=== PATIENT | female | born 1980 | race Hispanic/Latino ===

== ENCOUNTER 2019-02-22 08:31 | Outpatient (CLI) | payer OTHER ==
[2019-02-22 09:14] LABS: BHCG - Serum Negative (NEGATIVE); Pregs Control Background? CLEAR/WHITE (CLR/WHITE); Pregs Control Bar Appear? YES (CONTROL BAR)
[2019-02-22 09:15] LABS: Follow-up Chemistry Comp? YES
--- NOTE | 2019-02-22 12:00 | RAD ---
Hysterosalpingogram HISTORY: Evaluate tubal patency. Prior tubal ligation with reversal. FINDINGS: After explaining the procedure and answering all questions, the uterine cervix was exposed and prepped with Betadine. HSG catheter was carefully placed and the balloon inflated. Gentle administration of water-soluble contrast showed normal capacity and contour of the endometrial cavity . Small air bubble was temporarily seen at the left side of the fundus. After a short time of consistent gentle pressure, there was opacification of approximately 4 cm nondilated left fallopian t ube. The fimbria was never reliably opacified. No free spill seen. Persistent gentle pressure was applied with the contrast column. Approximately 3 cm of the right fallopian tube, nondilated, was robert ntually opacified. The fimbria never well seen. No free spill visualized. Continued gentle pressure was applied in an attempt to push the contrast through the remainder of the fallopian tubes. The uterine cervix was somewhat patulous, as the retention balloon was pushed through the somewhat elongated cervical canal, so that the contrast was then decompressed into the va rebecca. Metallic clip was seen within the left posterior pelvis, favored to be within the left side of the cu l-de-sac. Patient tolerated the procedure well and was dismissed in good condition. Fluoroscopy time 1.0 minute. IMPRESSION: Incomplete patency of the fallopian tubes. The length of each opacified fallopian tube ap pears greater than would be expected after a tubal ligation, although free spill was unable to be obtained, even after persistent gentle increasing fluid pressure.
== END 2019-02-22 08:32 | disposition home or self-care (01) ==
LOC: RAD 08:31
PROVIDERS: ATTEND Obstetrics & Gynecology
DX: N97.1 Female infertility of tubal origin (principal)
CPT/HCPCS: 36415; 58340; 74740; 84703

== ENCOUNTER 2020-05-07 09:42 | Outpatient (CLI) | payer OTHER ==
[2020-05-07 10:03] LABS: BHCG - Serum Negative (NEGATIVE); Pregs Control Background? CLEAR/WHITE (CLR/WHITE); Pregs Control Bar Appear? YES (CONTROL BAR)
--- NOTE | 2020-05-07 12:13 | RAD ---
Exam: Hysterosalpingogram HISTORY: Evaluate tubal patency. Reversal of tubal ligation. 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 Contrast does opacify the endometrium. There is parti al opacification of the left and right fallopian tubes. There is no evidence of free spillage in the left and right hemipelvis. There is reflux of contrast and uptake via the venous system. The veno us system with linear opacification the left hemipelvis. Balloon was deflated. Lower uterine segment is grossly unremarkable. IMPRESSION: No evidence of left or right tubal patency.
== END 2020-05-07 09:43 | disposition home or self-care (01) ==
LOC: RAD 09:42
PROVIDERS: ATTEND Obstetrics & Gynecology
DX: Z32.00 Encounter for pregnancy test, result unknown (principal); N97.9 Female infertility, unspecified
CPT/HCPCS: 36415; 58340; 74740; 84703

== ENCOUNTER 2021-03-27 09:35 | Outpatient (CLI) | payer OTHER ==
[2021-03-27 10:19] LABS: BHCG - Serum Negative (NEGATIVE); Pregs Control Background? CLEAR/WHITE (CLR/WHITE); Pregs Control Bar Appear? YES (CONTROL BAR)
== END 2021-03-27 09:36 | disposition home or self-care (01) ==
LOC: RAD 09:35
PROVIDERS: ATTEND Advanced Practice Midwife
DX: N97.1 Female infertility of tubal origin (principal); Z87.59 Personal history of other complications of pregnancy, childbirth and the puerperium
CPT/HCPCS: 58340; 74740; 84703

== ENCOUNTER 2021-12-16 07:30 | Outpatient (CLI) | payer OTHER ==
[2021-12-16 08:30] LABS: BHCG - Serum Negative (NEGATIVE); Pregs Control Background? CLEAR/WHITE (CLR/WHITE); Pregs Control Bar Appear? YES (CONTROL BAR)
== END 2021-12-16 07:31 | disposition home or self-care (01) ==
LOC: RAD 07:30
PROVIDERS: ATTEND Nurse Practitioner Family
DX: Z32.00 Encounter for pregnancy test, result unknown (principal)
CPT/HCPCS: 36415; 84703

== ENCOUNTER 2022-01-10 13:32 | Outpatient (CLI) | payer OTHER ==
[2022-01-10 14:02] LABS: BHCG - Serum Negative (NEGATIVE); Pregs Control Background? CLEAR/WHITE (CLR/WHITE); Pregs Control Bar Appear? YES (CONTROL BAR)
== END 2022-01-10 13:33 | disposition home or self-care (01) ==
LOC: RAD 13:32
PROVIDERS: ATTEND Student in an Organized Health Care Education/Training Program
DX: Z32.00 Encounter for pregnancy test, result unknown (principal); N97.9 Female infertility, unspecified; Z31.69 Encounter for other general counseling and advice on procreation
CPT/HCPCS: 36415; 58340; 74740; 84703

== ENCOUNTER 2022-09-01 08:45 | Emergency (ER) | payer OTHER ==
[2022-09-01 09:56] LABS: #Eosinphils 0.1 thou/uL (0.0-0.7); #Lymphocytes 1.8 thou/uL (1.20-3.40); #Monocytes 0.4 thou/uL (0.11-0.59); #Neutrophils 3.3 thou/uL (1.40-6.50); %Basophils 0.7 % (0.0-1.0); %Eosinophils 2.6 % (0.0-10.0); %Lymphocytes 31.4 % (21.0-51.0); %Neutrophils 58.3 % (42.0-75.0); Mean Corpuscular HGB CONC 32.2 g/dL (32.0-36.0); Mean Corpuscular Hemoglobin 29.5 pg (27.0-31.0); Mean Corpuscular Volume 91.4 fl (78.0-98.0); Mean Platelet Volume 8.4 fL (7.4-10.4); Platelet Count 316 10x3/uL (130-400); RBC Distribution Width 13.8 % (11.5-14.5); Red Blood Cell (RBC) Count 4.08 mill/uL (4.20-5.40); White Blood Cell (WBC) Count 5.6 10x3/uL (4.8-10.8)
[2022-09-01 10:30] LABS: Bacteria/HPF None Seen HPF (None Seen); Bilirubin Negative (Negative); Blood, Urine 3+ (Negative); Clarity Clear (Clear); Glucose, Urine (Dipstick) Normal (Negative); Ketone, Urine Negative (Negative); Leukocyte Negative Leu/uL (Negative); Nitrite Negative (Negative); Protein, Urine (Dipstick) Negative (Neg-Trace); RBC/HPF Greater than 50 HPF (0-3); Specific Gravity, Urine 1.009 (1.002-1.036); Squamous Epithelial 0-3 HPF (0-3); Urobilinogen Normal mg/dL (Less than 2); WBC/HPF 0-3 HPF (0-3); pH, Urine 6.5 (5.0-9.0)
[2022-09-01 10:33] LABS: ALT (SGPT) 12 U/L (8-55); AST (SGOT) 15 U/L (5-34); Albumin 4.2 g/dL (3.5-5.0); Alkaline Phosphatase 78 U/L (40-110); Anion Gap 11 mmol/L (10-20); BUN (Urea Nitrogen) 8 mg/dL (7.0-18.7); Bilirubin, Total 0.3 mg/dL (0.2-1.2); Calc. Creatinine Clearance 0 mL/min (70-130); Calcium 9.3 mg/dL (7.8-10.44); Carbon Dioxide 24 mmol/L (22-29); Chloride 106 mmol/L (98-107); Estimated GFR 113; Globulin 3.2 g/dL (2.4-3.5); Glucose 99 mg/dL (70-105); Potassium 3.9 mmol/L (3.5-5.1); Protein, Total 7.4 g/dL (6.0-8.3); Sodium 137 mmol/L (136-145)
== END 2022-09-01 11:49 | disposition home or self-care (01) ==
LOC: ERS 08:45
DX: O20.0 Threatened abortion (principal); Z3A.00 Weeks of gestation of pregnancy not specified
CPT/HCPCS: 36415; 76856; 80053; 81003; 81015; 84702; 85025; 86900; 86901; 99284

== ENCOUNTER 2022-10-07 15:46 | Emergency (ER) | payer OTHER ==
[2022-10-07] MEDS ORDERED: Dicyclomine 20 MG TAB ONE (16:56)
[2022-10-07] MEDS ORDERED: Ketorolac Tromethamine 30 MG/ML VIAL ONE (16:56)
[2022-10-07] MEDS ORDERED: Dicyclomine 20 MG/2 ML VIAL ONE (16:57)
[2022-10-07] MEDS ORDERED: Ondansetron ODT 4 MG TAB ONE (17:31)
[2022-10-07 17:46] LABS: Bacteria/HPF 4+ HPF (None Seen); Bilirubin Negative (Negative); Blood, Urine 3+ (Negative); Clarity Clear (Clear); Glucose, Urine (Dipstick) Normal (Negative); Ketone, Urine Negative (Negative); Leukocyte 500 Leu/uL (Negative); Nitrite 1+ (Negative); Protein, Urine (Dipstick) 70 mg/dL (Neg-Trace); Specific Gravity, Urine 1.012 (1.002-1.036); Squamous Epithelial 0-3 HPF (0-3); Urobilinogen Normal mg/dL (Less than 2); WBC/HPF 21-50 HPF (0-3)
[2022-10-07 17:52] LABS: Pregnancy Test - Urine (BHCG) Negative (Negative); Pregu Control Background? CLEAR/WHITE (CLR/WHITE); Pregu Control Bar Appear? YES (CONTROL BAR); Specific Gravity 1.012 (1.002-1.036)
== END 2022-10-07 18:40 | disposition home or self-care (01) ==
LOC: ERS 15:46
DX: N39.0 Urinary tract infection, site not specified (principal)
CPT/HCPCS: 74176; 81003; 81015; 81025; 96372; J1885; Q0162

== ENCOUNTER 2022-12-18 08:51 | Emergency (ER) | payer OTHER ==
[2022-12-18 09:17] LABS: Blood, Urine Moderate (Negative); Ketone, Urine Trace mg/dL (Negative); Specific Gravity, Urine 1.015 (1.005-1.030)
[2022-12-18 09:18] LABS: Clarity Hazy (Clear)
[2022-12-18] MEDS ORDERED: Ketorolac Tromethamine 30 MG/ML VIAL ONE (09:18)
[2022-12-18] MEDS ORDERED: Ondansetron PF 4 MG/2 ML Vial ONE (09:18)
[2022-12-18 09:21] LABS: Bilirubin Unable to Interpret (Negative); Glucose, Urine (Dipstick) Unable to Interpret mg/dL (Negative); Leukocyte Unable to Interpret (Negative); Nitrite Unable to Interpret (Negative); Urobilinogen UNABLE TO INTERPRET mg/dL (Less than 2)
[2022-12-18 09:33] LABS: #Eosinphils 0.1 thou/uL (0.0-0.7); #Monocytes 0.6 thou/uL (0.11-0.59); #Neutrophils 6.5 thou/uL (1.40-6.50); %Basophils 0.3 % (0.0-1.0); %Eosinophils 1.5 % (0.0-10.0); %Lymphocytes 18.5 % (21.0-51.0); %Monocytes 6.7 % (0.0-10.0); %Neutrophils 72.7 % (42.0-75.0); Hemoglobin 12.1 g/dL (12.0-16.0); Mean Corpuscular HGB CONC 33.1 g/dL (32.0-36.0); Mean Corpuscular Hemoglobin 29.7 pg (27.0-31.0); Mean Corpuscular Volume 89.7 fl (78.0-98.0); Mean Platelet Volume 10.5 fL (7.4-10.4); Platelet Count 325 10x3/uL (130-400); RBC Distribution Width 14.1 % (11.5-14.5); Red Blood Cell (RBC) Count 4.08 mill/uL (4.20-5.40); White Blood Cell (WBC) Count 8.9 10x3/uL (4.8-10.8)
[2022-12-18 09:44] LABS: CAUTI Indications for Culture Pelvic or flank pain; WBC/HPF Greater than 50 HPF (0-3)
[2022-12-18 09:45] LABS: Bacteria/HPF 3+ HPF (None Seen); Renal Epithelial 0-3 HPF (None Seen); Squamous Epithelial 0-3 HPF (0-3)
[2022-12-18 09:46] LABS: Urine Culture Reflex Yes Yes
[2022-12-18 09:52] LABS: BHCG - Serum Negative (NEGATIVE); Pregs Control Background? CLEAR/WHITE (CLR/WHITE); Pregs Control Bar Appear? YES (CONTROL BAR)
[2022-12-18 10:13] LABS: ALT (SGPT) 13 U/L (8-55); AST (SGOT) 13 U/L (5-34); Albumin 4.2 g/dL (3.5-5.0); Alkaline Phosphatase 73 U/L (40-110); Anion Gap 13 mmol/L (10-20); BUN (Urea Nitrogen) 10 mg/dL (7.0-18.7); Bilirubin, Total 0.5 mg/dL (0.2-1.2); Calc. Creatinine Clearance 0 mL/min (70-130); Calcium 9.6 mg/dL (7.8-10.44); Carbon Dioxide 20 mmol/L (22-29); Chloride 105 mmol/L (98-107); Estimated GFR 108; Globulin 3.3 g/dL (2.4-3.5); Glucose 93 mg/dL (70-105); Lipase 6 U/L (8-78); Protein, Total 7.5 g/dL (6.0-8.3); Sodium 134 mmol/L (136-145)
== END 2022-12-18 10:56 | disposition home or self-care (01) ==
LOC: ERS 08:51
DX: N10 Acute pyelonephritis (principal)
CPT/HCPCS: 36415; 80053; 81001; 83605; 83690; 84703; 85025; 87077; 87086; 87186; 96374; 96375; J1885; J2405

== ENCOUNTER 2023-04-17 20:05 | Emergency (ER) | payer OTHER ==
[2023-04-17 21:07] LABS: #Eosinphils 0.1 thou/uL (0.0-0.7); #Monocytes 1.1 thou/uL (0.11-0.59); #Neutrophils 9.7 thou/uL (1.40-6.50); %Basophils 0.2 % (0.0-1.0); %Eosinophils 0.6 % (0.0-10.0); %Lymphocytes 21.2 % (21.0-51.0); %Monocytes 7.6 % (0.0-10.0); %Neutrophils 69.9 % (42.0-75.0); Hematocrit 36.9 % (36.0-47.0); Hemoglobin 12.1 g/dL (12.0-16.0); Mean Corpuscular HGB CONC 32.8 g/dL (32.0-36.0); Mean Corpuscular Hemoglobin 30.3 pg (27.0-31.0); Mean Corpuscular Volume 92.3 fl (78.0-98.0); Platelet Count 425 10x3/uL (130-400); RBC Distribution Width 15.5 % (11.5-14.5); White Blood Cell (WBC) Count 13.9 10x3/uL (4.8-10.8)
[2023-04-17 21:42] LABS: Bilirubin Negative (Negative); Blood, Urine Negative (Negative); Clarity Clear (Clear); Glucose, Urine (Dipstick) Normal (Negative); Ketone, Urine Negative (Negative); Leukocyte Negative Leu/uL (Negative); Nitrite Negative (Negative); Protein, Urine (Dipstick) Negative (Neg-Trace); Specific Gravity, Urine 1.009 (1.002-1.036); Urobilinogen Normal mg/dL (Less than 2); pH, Urine 5.5 (5.0-9.0)
[2023-04-17 21:52] LABS: Bacteria/HPF Rare-Few HPF (None Seen); CAUTI Indications for Culture Pregnancy; RBC/HPF None Seen HPF (0-3); Squamous Epithelial 0-3 HPF (0-3); WBC/HPF 0-3 HPF (0-3)
[2023-04-17 21:53] LABS: Urine Culture Reflex Yes Yes
== END 2023-04-17 22:18 | disposition home or self-care (01) ==
LOC: ERS 20:05
DX: O20.0 Threatened abortion (principal); Z3A.01 Less than 8 weeks gestation of pregnancy
CPT/HCPCS: 36415; 81001; 84702; 85025; 87086; 99284

== ENCOUNTER 2023-05-04 06:32 | Emergency (ER) | payer OTHER ==
[2023-05-04 07:23] LABS: #Eosinphils 0.1 thou/uL (0.0-0.7); #Monocytes 0.6 thou/uL (0.11-0.59); #Neutrophils 6.6 thou/uL (1.40-6.50); %Basophils 0.2 % (0.0-1.0); %Eosinophils 1.2 % (0.0-10.0); %Lymphocytes 21.3 % (21.0-51.0); %Monocytes 6.2 % (0.0-10.0); %Neutrophils 70.7 % (42.0-75.0); Hematocrit 35.4 % (36.0-47.0); Hemoglobin 11.6 g/dL (12.0-16.0); Mean Corpuscular HGB CONC 32.8 g/dL (32.0-36.0); Mean Corpuscular Volume 94.7 fl (78.0-98.0); Mean Platelet Volume 9.9 fL (7.4-10.4); Platelet Count 338 10x3/uL (130-400); RBC Distribution Width 15.4 % (11.5-14.5); Red Blood Cell (RBC) Count 3.74 mill/uL (4.20-5.40); White Blood Cell (WBC) Count 9.3 10x3/uL (4.8-10.8)
[2023-05-04 07:34] LABS: Bilirubin Negative (Negative); Blood, Urine 3+ (Negative); CAUTI Indications for Culture Pregnancy; Glucose, Urine (Dipstick) Normal (Negative); Ketone, Urine Negative (Negative); Leukocyte 25 Leu/uL (Negative); Nitrite Negative (Negative); Protein, Urine (Dipstick) 30 mg/dL (Neg-Trace); Urobilinogen Normal mg/dL (Less than 2)
[2023-05-04 07:37] LABS: Bacteria/HPF 1+ HPF (None Seen); Clarity Hazy (Clear)
[2023-05-04 07:50] LABS: ALT (SGPT) 14 U/L (8-55); AST (SGOT) 10 U/L (5-34); Albumin 3.5 g/dL (3.5-5.0); Alkaline Phosphatase 70 U/L (40-110); Anion Gap 13 mmol/L (10-20); BUN (Urea Nitrogen) 12 mg/dL (7.0-18.7); Bilirubin, Total 0.4 mg/dL (0.2-1.2); Calc. Creatinine Clearance 0 mL/min (70-130); Calcium 9.2 mg/dL (7.8-10.44); Carbon Dioxide 24 mmol/L (22-29); Chloride 106 mmol/L (98-107); Estimated GFR 113; Globulin 3.2 g/dL (2.4-3.5); Glucose 91 mg/dL (70-105); Potassium 3.7 mmol/L (3.5-5.1); Protein, Total 6.7 g/dL (6.0-8.3); Sodium 139 mmol/L (136-145)
[2023-05-04 07:54] LABS: Urine Culture Reflex Yes Yes
== END 2023-05-04 11:39 | disposition short-term general hospital (02) ==
LOC: ERS 06:32
DX: O20.8 Other hemorrhage in early pregnancy (principal); O23.91 Unspecified genitourinary tract infection in pregnancy, first trimester; R82.71 Bacteriuria; Z3A.01 Less than 8 weeks gestation of pregnancy
CPT/HCPCS: 36415; 76801; 80053; 81001; 84702; 85025; 87086

== ENCOUNTER 2023-06-06 13:22 | Emergency (ER) | payer OTHER ==
[2023-06-06 13:59] LABS: #Monocytes 0.5 thou/uL (0.11-0.59); #Neutrophils 3.1 thou/uL (1.40-6.50); %Basophils 0.2 % (0.0-1.0); %Eosinophils 0.2 % (0.0-10.0); %Lymphocytes 24.4 % (21.0-51.0); %Monocytes 9.6 % (0.0-10.0); %Neutrophils 65.4 % (42.0-75.0); Hematocrit 39.9 % (36.0-47.0); Hemoglobin 13.6 g/dL (12.0-16.0); Mean Corpuscular HGB CONC 34.1 g/dL (32.0-36.0); Mean Corpuscular Hemoglobin 31.4 pg (27.0-31.0); Mean Corpuscular Volume 92.1 fl (78.0-98.0); Mean Platelet Volume 10.9 fL (7.4-10.4); Platelet Count 224 10x3/uL (130-400); Red Blood Cell (RBC) Count 4.33 mill/uL (4.20-5.40); White Blood Cell (WBC) Count 4.7 10x3/uL (4.8-10.8)
[2023-06-06 14:11] LABS: ALT (SGPT) 13 U/L (8-55); AST (SGOT) 15 U/L (5-34); Albumin 3.7 g/dL (3.5-5.0); Alkaline Phosphatase 75 U/L (40-110); Anion Gap 16 mmol/L (10-20); BUN (Urea Nitrogen) 5 mg/dL (7.0-18.7); Bilirubin, Total 0.4 mg/dL (0.2-1.2); Calc. Creatinine Clearance 0 mL/min (70-130); Calcium 8.5 mg/dL (7.8-10.44); Carbon Dioxide 20 mmol/L (22-29); Chloride 105 mmol/L (98-107); Estimated GFR 115; Globulin 3.6 g/dL (2.4-3.5); Glucose 97 mg/dL (70-105); Potassium 4.1 mmol/L (3.5-5.1); Protein, Total 7.3 g/dL (6.0-8.3); Sodium 137 mmol/L (136-145)
[2023-06-06] MEDS ORDERED: Acetaminophen 500 MG TAB ONE (15:09)
[2023-06-06 15:30] LABS: SARS-CoV-2 NAA Rapid Test Not Detected (NotDetected)
== END 2023-06-06 18:11 | disposition home or self-care (01) ==
LOC: ERS 13:22
DX: O98.511 Other viral diseases complicating pregnancy, first trimester (principal); J10.1 Influenza due to other identified influenza virus with other respiratory manifestations; Z3A.11 11 weeks gestation of pregnancy
CPT/HCPCS: 36415; 71045; 80053; 85025; 93005

== ENCOUNTER 2023-08-12 06:54 | Emergency (ER) | payer OTHER ==
[2023-08-12 07:57] LABS: Bacteria/HPF None Seen HPF (None Seen); Bilirubin Negative (Negative); Blood, Urine Negative (Negative); CAUTI Indications for Culture Pregnancy; Clarity Clear (Clear); Glucose, Urine (Dipstick) Normal (Negative); Ketone, Urine 40 mg/dL (Negative); Leukocyte Negative Leu/uL (Negative); Nitrite Negative (Negative); Protein, Urine (Dipstick) 30 mg/dL (Neg-Trace); RBC/HPF 0-3 HPF (0-3); Specific Gravity, Urine 1.028 (1.002-1.036); Squamous Epithelial 0-3 HPF (0-3); Urobilinogen Normal mg/dL (Less than 2); WBC/HPF 0-3 HPF (0-3)
[2023-08-12 08:09] LABS: Urine Culture Reflex Yes Yes
[2023-08-13 01:57] LABS: Chlamydia by PCR, Vaginal Swab Not Detected (NotDetected); GC by PCR, Vaginal Swab Not Detected (NotDetected)
== END 2023-08-12 10:08 | disposition home or self-care (01) ==
LOC: ERS 06:54
DX: O00.01 Abdominal pregnancy with intrauterine pregnancy (principal); Z3A.20 20 weeks gestation of pregnancy
CPT/HCPCS: 76815; 81001; 87086; 87480; 87491; 87510; 87591; 87660

== ENCOUNTER 2023-12-11 08:14 | Inpatient (IN) | payer OTHER ==
[2023-12-11 08:52] LABS: #Basophils Less than 0.03 10x3/uL (0.0-0.2); %Basophils 0.2 % (0.0-1.0); %Eosinophils 0.6 % (0.0-10.0); %Lymphocytes 12.1 % (21.0-51.0); %Monocytes 6.7 % (0.0-10.0); Hematocrit 28.4 % (36.0-47.0); Hemoglobin 8.8 g/dL (12.0-16.0); Mean Corpuscular Hemoglobin 27.5 pg (27.0-31.0); Mean Corpuscular Volume 88.8 fL (78.0-98.0); Mean Platelet Volume 9.5 fL (7.4-10.4); Platelet Count 884 10x3/uL (130-400); RBC Distribution Width 14.8 % (11.5-14.5)
[2023-12-11 09:08] LABS: INR-International Normal Ratio 1.2; Prothrombin Time 14.8 sec (12.0-14.7)
[2023-12-11 09:10] LABS: ALT (SGPT) 6 U/L (8-55); AST (SGOT) 9 U/L (5-34); Albumin 2.7 g/dL (3.5-5.0); Alkaline Phosphatase 83 U/L (40-110); Anion Gap 18 mmol/L (10-20); BUN (Urea Nitrogen) 8 mg/dL (7.0-18.7); Bilirubin, Total 0.4 mg/dL (0.2-1.2); Calc. Creatinine Clearance 0 mL/min (70-130); Calcium 9.2 mg/dL (7.8-10.44); Carbon Dioxide 22 mmol/L (22-29); Chloride 106 mmol/L (98-107); Estimated GFR 114; Globulin 4.9 g/dL (2.4-3.5); Glucose 104 mg/dL (70-105); Potassium 3.7 mmol/L (3.5-5.1); Protein, Total 7.6 g/dL (6.0-8.3); Sodium 142 mmol/L (136-145)
[2023-12-11] MEDS ORDERED: Ketorolac Tromethamine 30 MG (1 mL) VIAL ONE (09:32)
[2023-12-11] MEDS ORDERED: Ondansetron PF 4 MG/2 ML Vial ONE (09:32)
[2023-12-11] MEDS ORDERED: Sodium Chloride 0.9% 100 ML ONE (09:32)
[2023-12-11] MEDS ORDERED: Piperacillin/Tazobactam 4.5 GM VIAL ONE (09:32)
[2023-12-11 09:48] LABS: Bacteria/HPF None Seen HPF (None Seen); Bilirubin Negative (Negative); Blood, Urine 3+ (Negative); CAUTI Indications for Culture Dysuria,urgency,freq; Clarity Clear (Clear); Glucose, Urine (Dipstick) Normal (Negative); Ketone, Urine 20 mg/dL (Negative); Leukocyte 25 Leu/uL (Negative); Nitrite Negative (Negative); Protein, Urine (Dipstick) 20 mg/dL (Neg-Trace); RBC/HPF 21-50 HPF (0-3); Squamous Epithelial 0-3 HPF (0-3); Urobilinogen Normal mg/dL (Less than 2); WBC/HPF 0-3 HPF (0-3)
[2023-12-11 09:49] LABS: Urine Culture Reflex No No
[2023-12-11 09:50] LABS: INR-International Normal Ratio 1.2
[2023-12-11 09:51] LABS: PTT 55.4 sec (22.9-36.1)
[2023-12-11 09:57] LABS: BHCG - Serum Negative (NEGATIVE); Pregs Control Background? CLEAR/WHITE (CLR/WHITE); Pregs Control Bar Appear? YES (CONTROL BAR)
[2023-12-11 10:46] LABS: Influenza A by NAA Not Detected (NotDetected); Influenza B by NAA Not Detected (NotDetected); SARS-CoV-2 NAA Rapid Test DETECTED (NotDetected)
[2023-12-11] MEDS ORDERED: Ipratropium/Albuterol 3 ML NEB NEB PRN (12:39)
[2023-12-11] MEDS ORDERED: Ondansetron PF 4 MG/2 ML Vial IVP PRN (12:39)
[2023-12-11] MEDS: Ketorolac Tromethamine 30 MG (1 mL) VIAL IVP SCH ×2 (15:33→18:11)
[2023-12-11] MEDS: Acetaminophen 325 MG TAB PO SCH (15:33)
[2023-12-11] MEDS: Piperacillin/Tazobactam 3.375 GM in Sodium Chloride 0.9% 100 ML IVPB SCH (15:46)
[2023-12-11] MEDS: Sodium Chloride 0.9% 1,000 ML IV SCH (15:46)
[2023-12-11 15:52] VITALS: BMI 29.2
[2023-12-11] MEDS: Famotidine 20 MG TAB PO SCH (20:11)
[2023-12-11] MEDS: Ascorbic Acid 500 mg Chewable Tablet PO SCH (20:12)
[2023-12-11] MEDS: Famotidine/PF 20 mg/2ml Vial SLOW IVP SCH (20:12)
[2023-12-12 06:39] LABS: #Basophils Less than 0.03 10x3/uL (0.0-0.2); %Basophils 0.2 % (0.0-1.0); %Eosinophils 1.2 % (0.0-10.0); %Lymphocytes 13.6 % (21.0-51.0); %Monocytes 8.1 % (0.0-10.0); %Neutrophils 76.4 % (42.0-75.0); Hematocrit 23.3 % (36.0-47.0); Mean Corpuscular Hemoglobin 27.7 pg (27.0-31.0); Mean Corpuscular Volume 92.1 fL (78.0-98.0); Mean Platelet Volume 9.5 fL (7.4-10.4); Platelet Count 660 10x3/uL (130-400); RBC Distribution Width 14.7 % (11.5-14.5); Red Blood Cell (RBC) Count 2.53 mill/uL (4.20-5.40)
[2023-12-12 06:57] LABS: INR-International Normal Ratio 1.2; Prothrombin Time 15.4 sec (12.0-14.7)
[2023-12-12 06:58] LABS: PTT 56.3 sec (22.9-36.1)
[2023-12-12 07:05] LABS: Anion Gap 13 mmol/L (10-20); BUN (Urea Nitrogen) 5 mg/dL (7.0-18.7); Calc. Creatinine Clearance 153 mL/min (70-130); Calcium 8.4 mg/dL (7.8-10.44); Carbon Dioxide 21 mmol/L (22-29); Chloride 107 mmol/L (98-107); Estimated GFR 117; Glucose 85 mg/dL (70-105); Potassium 3.3 mmol/L (3.5-5.1); Sodium 138 mmol/L (136-145)
[2023-12-12] MEDS: Ferrous Sulfate 325 MG TAB PO SCH (08:19)
[2023-12-12] MEDS: Potassium Chloride 20 MEQ TAB PO SCH (08:20)
[2023-12-12] MEDS ORDERED: Sodium Bicarbonate 2.5 MEQ/5 ML SDV ONE (09:54)
[2023-12-12] MEDS ORDERED: Lidocaine 1% PF 5 ML VIAL ONE (09:54)
[2023-12-12 11:28] VITALS: BP 115/86; TEMP 98.6
[2023-12-12 12:34] LABS: BF Color Red; Body Fluid Source Abscess Fluid; Clarity Cloudy/Turbid (Clear); Tube # EDTA
== END 2023-12-12 14:11 | disposition home or self-care (01) | DRG 776 ==
LOC: ERS 08:14 → SJJU 15:25
PROVIDERS: ADMIT Student in an Organized Health Care Education/Training Program; ATTEND Student in an Organized Health Care Education/Training Program
PROC: 0W9G3ZZ Drainage of Peritoneal Cavity, Percutaneous Approach (ICD-10-PCS; principal; 2023-12-11)
DX: O86.03 Infection of obstetric surgical wound, organ and space site (principal); O86.04 Sepsis following an obstetrical procedure; U07.1 COVID-19; O98.53 Other viral diseases complicating the puerperium; D69.6 Thrombocytopenia, unspecified; O99.03 Anemia complicating the puerperium; D75.839 Thrombocytosis, unspecified
CPT/HCPCS: 36415; 49406; 71045; 74177; 76705; 80048; 80053; 81001; 83605; 83690; 84703; 85025; 85060; 85610; 85730; 86850; 86900; 86901; 87040; 87070; 87077; 87086; 87186; 87205; 89051; 93005; 94760; 96374; 96375; J1885; J2405; J2543; J3490; J7050; S0028

== ENCOUNTER 2024-03-11 07:42 | Observation (INO) | payer OTHER, SELFPAY ==
[2024-03-11] MEDS ORDERED: Morphine 4 MG/ML VIAL ONE ×2 (08:16→10:48)
[2024-03-11] MEDS ORDERED: Ketorolac Tromethamine 30 MG (1 mL) VIAL ONE ×2 (08:16→15:36)
[2024-03-11] MEDS ORDERED: Ondansetron PF 4 MG/2 ML Vial ONE ×4 (08:16→17:38)
[2024-03-11 08:28] LABS: #Basophils 0.03 10x3/uL (0.0-0.2); %Basophils 0.4 % (0.0-1.0); %Lymphocytes 20.5 % (21.0-51.0); %Monocytes 6.3 % (0.0-10.0); %Neutrophils 71.7 % (42.0-75.0); Hematocrit 30.1 % (36.0-47.0); Hemoglobin 9.4 g/dL (12.0-16.0); Mean Corpuscular HGB CONC 31.2 g/dL (32.0-36.0); Mean Corpuscular Hemoglobin 25.9 pg (27.0-31.0); Mean Corpuscular Volume 82.9 fL (78.0-98.0); Mean Platelet Volume 10.1 fL (7.4-10.4); Platelet Count 371 10x3/uL (130-400); RBC Distribution Width 14.3 % (11.5-14.5); Red Blood Cell (RBC) Count 3.63 mill/uL (4.20-5.40)
[2024-03-11 08:47] LABS: BHCG - Serum Negative (NEGATIVE); Pregs Control Background? CLEAR/WHITE (CLR/WHITE); Pregs Control Bar Appear? YES (CONTROL BAR)
[2024-03-11 08:54] LABS: ALT (SGPT) 15 U/L (8-55); AST (SGOT) 14 U/L (5-34); Albumin 3.5 g/dL (3.5-5.0); Alkaline Phosphatase 80 U/L (40-110); Anion Gap 9 mmol/L (10-20); BUN (Urea Nitrogen) 13 mg/dL (7.0-18.7); Bilirubin, Total 0.2 mg/dL (0.2-1.2); Calc. Creatinine Clearance 0 mL/min (70-130); Calcium 9.1 mg/dL (7.8-10.44); Carbon Dioxide 23 mmol/L (22-29); Chloride 110 mmol/L (98-107); Estimated GFR 113; Globulin 2.9 g/dL (2.4-3.5); Glucose 106 mg/dL (70-105); Lipase 11 U/L (8-78); Potassium 3.5 mmol/L (3.5-5.1); Protein, Total 6.4 g/dL (6.0-8.3); Sodium 138 mmol/L (136-145)
[2024-03-11] MEDS ORDERED: Sodium Chloride 0.9% 100 ML ONE (10:00)
[2024-03-11] MEDS ORDERED: Piperacillin/Tazobactam 3.375 GM VIAL ONE (10:00)
[2024-03-11 11:33] LABS: Bacteria/HPF None Seen HPF (None Seen); Bilirubin Negative (Negative); Blood, Urine Negative (Negative); CAUTI Indications for Culture Pelvic or flank pain; Clarity Clear (Clear); Glucose, Urine (Dipstick) Normal (Negative); Ketone, Urine Negative (Negative); Leukocyte Negative Leu/uL (Negative); Nitrite Negative (Negative); Protein, Urine (Dipstick) Negative (Neg-Trace); RBC/HPF 0-3 HPF (0-3); Specific Gravity, Urine 1.035 (1.002-1.036); Squamous Epithelial None Seen HPF (0-3); Urobilinogen Normal mg/dL (Less than 2); WBC/HPF 0-3 HPF (0-3); pH, Urine 6.5 (5.0-9.0)
[2024-03-11] MEDS ORDERED: Acetaminophen 325 MG TAB PO PRN (11:36)
[2024-03-11] MEDS ORDERED: hydrALAZINE 20 MG/ML VIAL SLOW IVP PRN (11:36)
[2024-03-11] MEDS ORDERED: Glucagon 1 MG/ML KIT IM PRN ×2 (11:36→17:00)
[2024-03-11] MEDS ORDERED: Dextrose 50% Abboject 50 ML SYRINGE SLOW IVP PRN ×2 (11:36→17:00)
[2024-03-11] MEDS ORDERED: Ondansetron PF 4 MG/2 ML Vial IVP PRN ×2 (11:36→17:00)
[2024-03-11] MEDS ORDERED: Dextrose 5% in Water 1,000 ML IV PRN ×2 (11:36→17:00)
[2024-03-11] MEDS ORDERED: HYDROcodone/Acetaminophen 5/325 mg Tablet PO PRN (11:38)
[2024-03-11 11:54] LABS: Urine Culture Reflex No No
[2024-03-11] MEDS ORDERED: Ketorolac Tromethamine 30 MG (1 mL) VIAL IVP SCH (12:00)
[2024-03-11] MEDS ORDERED: Iopamidol-370 76% 500 ML MDV (1 ML CHARGE) ONE (12:29)
[2024-03-11] MEDS ORDERED: EPINEPHrine 1 MG/ML VIAL ONE (14:09)
[2024-03-11] MEDS ORDERED: Lidocaine 1% PF 5 ML VIAL ONE (15:12)
[2024-03-11] MEDS ORDERED: fentaNYL PF 100 MCG/2 ML SYRINGE ONE (15:12)
[2024-03-11] MEDS ORDERED: Rocuronium Bromide 10 MG/ML (10ML VIAL) ONE (15:12)
[2024-03-11] MEDS ORDERED: PROPOFOL 20 ML ONE (15:12)
[2024-03-11] MEDS ORDERED: Dexamethasone 20 MG/5 ML VIAL ONE ×2 (15:36→17:38)
[2024-03-11] MEDS ORDERED: metroNIDAZOLE 500 MG (100 mL) BAG ONE (15:40)
[2024-03-11] MEDS ORDERED: Sterile Water 20 ML ONE (15:42)
[2024-03-11] MEDS ORDERED: CEFAZOLIN 1 GM VIAL ONE (15:42)
[2024-03-11] MEDS ORDERED: PACU-Morphine 4MG/ML VIAL SLOW IVP PRN (15:54)
[2024-03-11] MEDS ORDERED: Morphine Sulfate 2 MG/ML SYRINGE SLOW IVP PRN (15:54)
[2024-03-11] MEDS ORDERED: Ondansetron HCl/PF 4 MG/2 ML Vial IVP PRN (15:54)
[2024-03-11] MEDS ORDERED: HYDROmorphone 2 MG/ML VIAL SLOW IVP PRN (15:54)
[2024-03-11] MEDS ORDERED: Promethazine HCl 25 MG/ML VIAL IM PRN (15:54)
[2024-03-11] MEDS ORDERED: SUGAMMADEX SODIUM 200 MG/2 ML VIAL ONE ×2 (16:12→18:40)
[2024-03-11] MEDS ORDERED: HYDROcodone/Acetaminophen 10/325 mg Tablet PO PRN (17:00)
[2024-03-11] MEDS ORDERED: Ipratropium/Albuterol 3 ML NEB NEB PRN (17:00)
[2024-03-11] MEDS ORDERED: Calcium Carbonate 500 MG ChewTAB PO PRN (17:00)
[2024-03-11] MEDS ORDERED: SUCCINYLCHOLINE/SOD CL,ISO/PF 200 MG/10 ML SYRINGE FS ONE (17:06)
[2024-03-11] MEDS ORDERED: fentaNYL 50 mcg/mL 1 mL Vial ONE ×2 (17:11→19:03)
[2024-03-11] MEDS: Piperacillin/Tazobactam 3.375 GM in Sodium Chloride 0.9% 100 ML IVPB SCH ×2 (20:43→21:16)
[2024-03-11] MEDS ORDERED: Famotidine 20 MG TAB PO SCH (21:00)
[2024-03-11] MEDS ORDERED: Piperacillin/Tazobactam 3.375 GM in Sodium Chloride 0.9% 100 ML IVPB SCH (21:00)
[2024-03-11] MEDS: traMADol HCl 50 MG TAB PO PRN (21:15)
[2024-03-11] MEDS: Famotidine 20 MG TAB PO SCH (21:15)
[2024-03-11] MEDS: D5 1/2 NS w/20 mEq KCL 1,000 ML IV SCH (21:15)
[2024-03-11] MEDS: Lactated Ringer's 1,000 ML IV SCH (21:16)
[2024-03-12] MEDS: Ketorolac Tromethamine 30 MG (1 mL) VIAL IVP SCH (00:14)
[2024-03-12 05:13] LABS: #Basophils Less than 0.03 10x3/uL (0.0-0.2); #Eosinphils Less than 0.03 10x3/uL (0.0-0.7); %Basophils 0.1 % (0.0-1.0); %Lymphocytes 6.3 % (21.0-51.0); %Monocytes 3.4 % (0.0-10.0); %Neutrophils 89.5 % (42.0-75.0); Hematocrit 27.6 % (36.0-47.0); Hemoglobin 8.5 g/dL (12.0-16.0); Mean Corpuscular HGB CONC 30.8 g/dL (32.0-36.0); Mean Corpuscular Hemoglobin 25.9 pg (27.0-31.0); Mean Corpuscular Volume 84.1 fL (78.0-98.0); Mean Platelet Volume 10.2 fL (7.4-10.4); Platelet Count 316 10x3/uL (130-400); RBC Distribution Width 14.6 % (11.5-14.5); Red Blood Cell (RBC) Count 3.28 mill/uL (4.20-5.40)
[2024-03-12 05:36] LABS: Anion Gap 10 mmol/L (10-20); BUN (Urea Nitrogen) 10 mg/dL (7.0-18.7); Calc. Creatinine Clearance 0 mL/min (70-130); Calcium 8.7 mg/dL (7.8-10.44); Carbon Dioxide 23 mmol/L (22-29); Chloride 107 mmol/L (98-107); Estimated GFR 103; Glucose 151 mg/dL (70-105); Potassium 3.8 mmol/L (3.5-5.1); Sodium 136 mmol/L (136-145)
[2024-03-12] MEDS: Enoxaparin 30 MG (0.3 mL) SYRINGE SC SCH (09:55)
[2024-03-12 12:43] VITALS: BP 152/95; TEMP 98.1
== END 2024-03-12 12:55 | disposition home or self-care (01) ==
LOC: ERS 07:42 → ERHOLD 11:43 → SURG A 12:49 → SURG B 20:10
PROVIDERS: ADMIT Surgery; ATTEND Surgery
PROC: 0DTJ4ZZ Resection of Appendix, Percutaneous Endoscopic Approach (ICD-10-PCS; principal; 2024-03-12)
DX: K35.80 Unspecified acute appendicitis (principal); F41.9 Anxiety disorder, unspecified; F32.A Depression, unspecified; Z98.51 Tubal ligation status; Z79.899 Other long term (current) drug therapy
CPT/HCPCS: 36415; 74177; 80048; 80053; 81001; 83690; 84703; 85025; 88304; 93005; 96372; 96374; 96375; 96376; G0378; J0171; J0690; J1100; J1650; J1885; J2272; J2405; J2543; J2704; J3010; J3480; Q9967